=== PATIENT | male | born 1945 | race Caucasian/White ===

== ENCOUNTER 2021-06-10 22:19 | Emergency (ER) | payer OTHER, MEDICARE ==
[~2021-06-10] VITALS: Ht 175.3 cm; Wt 77.3 kg
[~2021-06-10 22:19] MED LIST: CEPH-585 PO
[2021-06-10 23:14] VITALS: BP 179/109
== END 2021-06-11 00:08 | disposition home or self-care (01) ==
LOC: ER 22:20
DX: R33.9 Retention of urine, unspecified (principal); I11.0 Hypertensive heart disease with heart failure; I50.9 Heart failure, unspecified; E78.00 Pure hypercholesterolemia, unspecified; Z98.890 Other specified postprocedural states; Z79.2 Long term (current) use of antibiotics
CPT/HCPCS: 51702; 99284

== ENCOUNTER 2021-06-11 20:35 | Emergency (ER) | payer OTHER, MEDICARE ==
[~2021-06-11] VITALS: Ht 175.3 cm; Wt 77.3 kg
[2021-06-11 20:55] VITALS: BP 239/125
== END 2021-06-11 23:43 | disposition home or self-care (01) ==
LOC: ER 20:35
DX: R33.9 Retention of urine, unspecified (principal); N40.0 Benign prostatic hyperplasia without lower urinary tract symptoms; N32.89 Other specified disorders of bladder; I48.91 Unspecified atrial fibrillation; I11.0 Hypertensive heart disease with heart failure; I50.9 Heart failure, unspecified; E78.00 Pure hypercholesterolemia, unspecified; Z98.890 Other specified postprocedural states; Z79.2 Long term (current) use of antibiotics
CPT/HCPCS: 99281

== ENCOUNTER 2021-07-02 02:18 | Emergency (ER) | payer OTHER, MEDICARE ==
[~2021-07-02] VITALS: Ht 175.3 cm; Wt 79.4 kg
--- NOTE | 2021-07-02 02:43 | NUR ---
patient into the ER today with complaints ofdiscomfort coming from the barraza catheter. He states that he pulled it two days ago and he tried to reinforce it Small amount of blood noted in the urine denies any fever or chills
--- NOTE | 2021-07-02 04:16 | NUR ---
patient barraza cath was replaced with a 18fr. blood return noted, irrigated the bladder per Dr. starkey. patient stilll complaining about discomfort and bladder spasm MD made aware
[2021-07-02] MEDS ORDERED: LIDOcaine 2% 10ml TOPICAL JELLY (Urojet) MM ONE (04:45)
--- NOTE | 2021-07-02 05:05 | NUR ---
18 fr in successful with irrgiation, 600cc of diaz colored urine in barraza bag.
[2021-07-02 05:07] VITALS: BP 150/95
== END 2021-07-02 05:18 | disposition home or self-care (01) ==
LOC: ER 02:20
DX: T83.091A Other mechanical complication of indwelling urethral catheter, initial encounter (principal); I48.91 Unspecified atrial fibrillation; I11.0 Hypertensive heart disease with heart failure; I50.9 Heart failure, unspecified; E78.00 Pure hypercholesterolemia, unspecified; N40.0 Benign prostatic hyperplasia without lower urinary tract symptoms; Z79.2 Long term (current) use of antibiotics; R33.9 Retention of urine, unspecified; Y84.6 Urinary catheterization as the cause of abnormal reaction of the patient, or of later complication, without mention of misadventure at the time of the procedure; Y92.89 Other specified places as the place of occurrence of the external cause
CPT/HCPCS: 51700; 51702; 99284